=== PATIENT | female | born 1970 | race Caucasian/White ===

== ENCOUNTER → 2017-06-28 10:38 | Outpatient (CLI) | payer OTHER, SELFPAY ==
[2017-06-28 12:43] LABS: Estradiol 52.5 pg/mL; Follicle Stimulating Hormone 9.4 mIU/mL
[2017-07-01 06:24] LABS: HPV APTIMA, High Risk Negative (Negative)
== END ==
PROVIDERS: Family Provider Family Medicine; PCP Family Medicine; Visit Provider Obstetrics & Gynecology
DX: Z01.419 Encounter for gynecological examination (general) (routine) without abnormal findings (principal)
CPT/HCPCS: 36415; 82670; 83001; 88175; G0145

== ENCOUNTER → 2017-07-27 12:24 | Outpatient (CLI) | payer OTHER, SELFPAY ==
--- NOTE | 2017-07-27 12:27 | BI_ITS ---
MAMMOGRAPHY - BILATERAL SCREENING REASON FOR EXAM: Female, 47 years old. Routine annual screening examination. PERTINENT HISTORY: Non-contributory. TECHNIQUE: Digital bilateral breast agapito (3D mammographic acquisition) in the CC and MLO projections. 2-D mediolateral oblique (MLO) and craniocaudad (CC) views of both breasts were obtained. CAD: Full Field Digital Mammography with Computer Added Detection was performed. COMPARISON: Comparison is made with prior outside examination dated April 04, 2016. FINDINGS: Breast Composition: There are scattered areas of fibroglandular density. There are no dominant masses or suspicious calcifications. No other significant abnormalities are identified. There has been no significant change since the prior study. BI/SCREENING MAMM (CAD), BILAT IMPRESSION: Stable bilateral screening mammogram. Yearly follow-up mammogram recommended. (A) ASSESSMENT CATEGORY: BIRADS Category 1: Negative. A letter regarding these results will be sent to the patient by the facility within 30 days. Approximately 10% of breast cancers are not detected by mammography. A normal mammogram should not delay biopsy of a clinically suspicious abnormality. [id number] Electronically Signed: Matty Barton MD at 13:39 EDT Tel [phone], Service support ,
== END ==
PROVIDERS: Family Provider Family Medicine; PCP Family Medicine; Visit Provider Obstetrics & Gynecology
DX: Z12.31 Encounter for screening mammogram for malignant neoplasm of breast (principal)
CPT/HCPCS: 77063; 77067

== ENCOUNTER 2017-10-05 05:29 | Day surgery (SDC) | payer OTHER, SELFPAY ==
[2017-10-05 05:45] VITALS: BP 112/79; PULSE 66; RESP 16; TEMP 36.9; O2SAT 98; BMI 27.1
[2017-10-05 05:50] LABS: Internal QC Validated? YES +Cl - CLEAR BKGD; Pregnancy, Urine Negative Negative
--- NOTE | 2017-10-05 07:34 | PCM.DC.URO ---
Discharge Diet: Light diet - advance as tolerated Discharge Activity: Return to Normal Activity Call your doctor if your incision/area has: Continuous Slow Oozing, Sudden Increased Bleeding, Increased Pain/ Swelling, Increased Redness, Foul Smelling Discharge, Swelling at the incision site Call your doctor if you observe: Inability to urinate Instructions: Stress Urinary Incontinence: Having Midurethral Sling Surgery Allergies/Adverse Reactions: Allergies Sulfa (Sulfonamide Antibiotics) Allergy (Verified 10/05/17 05:43) Hives Medications to take at Discharge Alprazolam [Xanax] 0.5 mg PO DAILY PRN PRN 10/01/17 Alprazolam [Xanax] 1 mg PO QHS 10/01/17 Atenolol [Tenormin (beta Franca)] 25 mg PO QHS 10/01/17 Bupropion HCl [Wellbutrin Xl] 300 mg PO DAILY 10/01/17 Calcium Carbonate [Calcium] 1,000 mg PO QHS 10/01/17 Fluticasone 0.05% [Flonase Nasal [place]] 2 spray NASAL DAILY 10/01/17 L.acidoph,Paracasei, B.lactis [Probiotic] 1 each PO DAILY 10/01/17 Lisinopril [Prinivil] 5 mg PO QHS 10/01/17 Loratadine [Claritin] 10 mg PO DAILY 10/01/17 Multivitamin [Multiple Vitamins] 1 each PO DAILY 10/01/17 Ciprofloxacin [Cipro] 500 mg PO BID #6 tab 10/05/17 Hydrocodone/Acetaminophen [[place] 5-325 Tablet] 1 ea PO Q4H PRN PRN #14 tab 10/05/17 The following prescriptions were given: Hydrocodone/Acetaminophen [[place] 5-325 Tablet] 1 ea PO Q4H PRN PRN #14 tab PRN Reason: Pain Ciprofloxacin [Cipro] 500 mg PO BID #6 tab Primary Care Physician: Airam Concepcion PA-C [Primary Care Provider] - Please Follow Up With: Ivan Roper MD When: in 2 weeks, please call to make an appointment.
[2017-10-05] MEDS: Cefazolin 2 GM in 0.9% Normal Saline 100 ML IV (07:37)
--- NOTE | 2017-10-05 08:38 | OP.PCM_ITS ---
Report of Operation Date of Procedure: 10/05/17 Pre-Operative Diagnosis: Stress incontinence Post-Operative Diagnosis: Same Surgery/Procedure Performed:: Cystoscopy and tension-free vaginal sling Description of Surgical Findings:: 47-year-old female was taken back to the operating room at the smooth induction of general anesthesia she was placed supine on the table she underwent a timeout procedure she was given IV antibiotics, SCDs were on for DVT prophylaxis , she was then placed in dorsal lithotomy position with the legs in stirrups making sure to pressure to secure all insecure all her pressure points, she then underwent a vaginal vault and vaginal prep. Placed the patient in Trendelenburg position with the head down and put a catheter into the bladder and drain the bladder completely 10 cc in the balloon I then marked out the bladder neck with the marker and then marked the mid urethra I then infiltrated the urethra with lidocaine with 1-100,000 epi mixture about 8 cc of lidocaine was injected into the urethra area I did use a forceps to tension the vaginal mucosa and then made a 2 cm incision below the urethra right in the midline once the incision was made then I used long curved kp and dissected a space in the right side from the incision behind the urethra up to the pubic bone into the space of Retzius on the left side the same thing on the right side once the space was developed for the sling material passed through then we went to the top marked the pubic and midline went 2 cm to the left and 2 cm of the right and then made an incision in the skin using a different skin knife, I then used the suprapubic trocar on the left side first and passed the trocar top down behind the pubic bone hugging the pubic bone as I did this and then came to the vaginal incision and passed the trocar top down through the vaginal incision the catheter was then removed I then used cystoscopy performed a cystoscopy was 70? lens distended the bladder really well and there was no perforation or injury of the bladder, I then put a catheter back in drain the bladder and passed the sling up on that side put on a snap on the other end of the sling I then went back to the left side and passed the trocar down the left side top down again hugging the pubic bone as a came down and then through the vaginal incision the trocar was passed I then checked the bladder again used a cystoscopy with 70? lens distended the bladder really well and there was no perforation or violation of the bladder and the urethra was clear. I then grabbed the sling on that side and pulled it up then at this point I flatten the sling made sure that there is no kinking or twisting of the sling and pulled up to the urethra in the midline I then put a snap on the sling, tensioned and then visually to tensioned the sling up to the urethra so that it was right up to the urethra but but not tight on the urethra once the sling was tension to what I thought would be an appropriate amount of tension I then cut the ends of the slings off and then pulled this sheath off the sling to release the sling. The sling was then inspected it was nice and flat below the urethra and then I pulled the vaginal mucosa over the sling made sure the sling was laying nice and flat in the mid ureter which was then cut the ends off the sling on the suprapubic above anteriorly. And tucked the mesh deep into the subcutaneous fat anteriorly I then performed another cystoscopy check in the bladder and the urethra urethra again making sure there is no perforation or violation of the bladder urethra which there are none the bladder was normal she did not have any significant cystocele or prolapsing bladder or her vagina. Then I closed the vaginal incision using interrupted 3-0 Vicryls and then I closed the twos suprapubic incisions with subcuticular Monocryl and Steri- Strips are placed the bladder was drained and emptied completely I did not leave a catheter and patient's anesthetic was reversed and she is taken back to the PACU in good condition and extubated plan will be that the patient urinate if she is able to urinate freely and she can go home without a catheter. Type of Anesthesia:: General Drains: none - Admit VTE Documentation VTE Present on Admission: No VTE Mechan Device Prophylaxis: SCD's VTE Pharm Prophylaxis ordered?: No Reason prophylaxis not ordered:: Treatment Not Indicated
[2017-10-05 08:40] VITALS: BP 112/79; BP 113/75; PULSE 70; RESP 14; TEMP 36.2; O2SAT 96
[2017-10-05 09:00] VITALS: BP 112/76; BP 112/79; PULSE 55; RESP 14; O2SAT 96
[2017-10-05 09:15] VITALS: BP 110/75; BP 112/79; PULSE 50; RESP 16; O2SAT 94
--- NOTE | 2017-10-05 09:28 | PCM.DC.URO ---
Discharge Diet: Light diet - advance as tolerated Discharge Activity: Return to Normal Activity Call your doctor if your incision/area has: Continuous Slow Oozing, Sudden Increased Bleeding, Increased Pain/ Swelling, Increased Redness, Foul Smelling Discharge, Swelling at the incision site Call your doctor if you observe: Inability to urinate Instructions: Stress Urinary Incontinence: Having Midurethral Sling Surgery Allergies/Adverse Reactions: Allergies Sulfa (Sulfonamide Antibiotics) Allergy (Verified 10/05/17 05:43) Hives Medications to take at Discharge Alprazolam [Xanax] 0.5 mg PO DAILY PRN PRN 10/01/17 Alprazolam [Xanax] 1 mg PO QHS 10/01/17 Atenolol [Tenormin (beta Franca)] 25 mg PO QHS 10/01/17 Bupropion HCl [Wellbutrin Xl] 300 mg PO DAILY 10/01/17 Calcium Carbonate [Calcium] 1,000 mg PO QHS 10/01/17 Fluticasone 0.05% [Flonase Nasal [place]] 2 spray NASAL DAILY 10/01/17 L.acidoph,Paracasei, B.lactis [Probiotic] 1 each PO DAILY 10/01/17 Lisinopril [Prinivil] 5 mg PO QHS 10/01/17 Loratadine [Claritin] 10 mg PO DAILY 10/01/17 Multivitamin [Multiple Vitamins] 1 each PO DAILY 10/01/17 Ciprofloxacin [Cipro] 500 mg PO BID #6 tab 10/05/17 Hydrocodone/Acetaminophen [[place] 5-325 Tablet] 1 ea PO Q4H PRN PRN #14 tab 10/05/17 The following prescriptions were given: Hydrocodone/Acetaminophen [[place] 5-325 Tablet] 1 ea PO Q4H PRN PRN #14 tab PRN Reason: Pain Ciprofloxacin [Cipro] 500 mg PO BID #6 tab Primary Care Physician: Airam Concepcion PA-C [Primary Care Provider] -
[2017-10-05 09:30] VITALS: BP 112/79; BP 133/82; PULSE 50; RESP 16; TEMP 36.1; O2SAT 97
--- NOTE | 2017-10-05 09:47 | DCINST_ITS ---
Discharge Diet: Light diet - advance as tolerated Discharge Activity: Return to Normal Activity Call your doctor if your incision/area has: Continuous Slow Oozing, Sudden Increased Bleeding, Increased Pain/ Swelling, Increased Redness, Foul Smelling Discharge, Swelling at the incision site Call your doctor if you observe: Inability to urinate Instructions: Stress Urinary Incontinence: Having Midurethral Sling Surgery Allergies/Adverse Reactions: Allergies Sulfa (Sulfonamide Antibiotics) Allergy (Verified 10/05/17 05:43) Hives Medications to take at Discharge Alprazolam [Xanax] 0.5 mg PO DAILY PRN PRN 10/01/17 Alprazolam [Xanax] 1 mg PO QHS 10/01/17 Atenolol [Tenormin (beta Franca)] 25 mg PO QHS 10/01/17 Bupropion HCl [Wellbutrin Xl] 300 mg PO DAILY 10/01/17 Calcium Carbonate [Calcium] 1,000 mg PO QHS 10/01/17 Fluticasone 0.05% [Flonase Nasal [place]] 2 spray NASAL DAILY 10/01/17 L.acidoph,Paracasei, B.lactis [Probiotic] 1 each PO DAILY 10/01/17 Lisinopril [Prinivil] 5 mg PO QHS 10/01/17 Loratadine [Claritin] 10 mg PO DAILY 10/01/17 Multivitamin [Multiple Vitamins] 1 each PO DAILY 10/01/17 Ciprofloxacin [Cipro] 500 mg PO BID #6 tab 10/05/17 Hydrocodone/Acetaminophen [[place] 5-325 Tablet] 1 ea PO Q4H PRN PRN #14 tab 10/05 The following prescriptions were given: Hydrocodone/Acetaminophen [[place] 5-325 Tablet] 1 ea PO Q4H PRN PRN #14 tab PRN Reason: Pain Ciprofloxacin [Cipro] 500 mg PO BID #6 tab Primary Care Physician: Airam Concepcion PA-C [Primary Care Provider] -
[2017-10-05 13:15] VITALS: BP 112/76; BP 112/79; PULSE 61; RESP 18; TEMP 36.7; O2SAT 97
== END 2017-10-05 13:18 | disposition home or self-care (01) ==
LOC: SDC 05:29 → AC 05:30
PROVIDERS: Family Provider Family Medicine; PCP Family Medicine; Visit Provider Urology
PROC: (CPT 57288; principal; 2017-10-05 07:15)
DX: N39.3 Stress incontinence (female) (male) (principal); R35.0 Frequency of micturition; I10 Essential (primary) hypertension; J30.9 Allergic rhinitis, unspecified; F41.9 Anxiety disorder, unspecified; Z79.899 Other long term (current) drug therapy
CPT/HCPCS: 51992; 81025; J7120; C1771; J2405

== ENCOUNTER → 2017-10-18 16:47 | Outpatient (CLI) | payer OTHER, SELFPAY | PROVIDERS: Family Provider Family Medicine; PCP Family Medicine; Visit Provider Urology | DX: R30.0 Dysuria (principal); R82.99 Other abnormal findings in urine | CPT/HCPCS: 87086; 87088 ==

== ENCOUNTER → 2019-02-27 16:07 | Outpatient (CLI) | payer OTHER, SELFPAY ==
[2019-03-04 20:33] LABS: HPV Reflexed? NOT INDICATED
== END ==
PROVIDERS: Family Provider Family Medicine; PCP Family Medicine; Referring Provider Obstetrics & Gynecology; Visit Provider Obstetrics & Gynecology
DX: Z12.4 Encounter for screening for malignant neoplasm of cervix (principal)
CPT/HCPCS: 88175; G0145

== ENCOUNTER → 2019-03-14 10:56 | Outpatient (CLI) | payer OTHER, SELFPAY ==
--- NOTE | 2019-03-14 11:04 | BI_ITS ---
MAMMOGRAPHY - BILATERAL SCREENING 3-D TOMOSYNTHESIS REASON FOR EXAM: Female, 48 years old. PERTINENT HISTORY: No significant family history. TECHNIQUE: 2-D mammograms and 3-D Tomosynthesis of the breast (s) were performed. CAD was performed. COMPARISON: July 27, 2017 FINDINGS: The breast composition is of fatty texture with minimal fibroglandular tissue Scattered benign calcifications are seen. No dense spiculated masses or suspicious microcalcifications are identified. No architectural distortion is identified. There is no skin thickening or nipple retraction. There has been no significant change since the prior study of July 27, 2017. BI/SCREEN MAMM (CAD) W/CHARISSE BILAT IMPRESSION: No mammographic signs of malignancy. Routine yearly mammograms recommended. ASSESSMENT CATEGORY: BIRADS Category 1: Negative. A letter regarding these results will be sent to the patient by the facility within 30 days. FOLLOW UP RECOMMENDATION: Yearly follow up mammogram recommended. (A) Approximately 10% of breast cancers are not detected by mammography. A normal mammogram should not delay biopsy of a clinically suspicious abnormality. Electronically Signed: Donna Wu, at 15:21 EST Tel , Service support ,
== END ==
PROVIDERS: Family Provider Family Medicine; PCP Family Medicine; Referring Provider Obstetrics & Gynecology; Visit Provider Obstetrics & Gynecology
DX: Z12.31 Encounter for screening mammogram for malignant neoplasm of breast (principal)
CPT/HCPCS: 77063; 77067

== ENCOUNTER → 2020-07-27 09:30 | Outpatient (CLI) | payer OTHER, SELFPAY ==
[2020-07-30 15:53] LABS: HPV Reflexed? NOT INDICATED
== END ==
PROVIDERS: PCP Family Medicine; Visit Provider Obstetrics & Gynecology
DX: Z12.4 Encounter for screening for malignant neoplasm of cervix (principal)
CPT/HCPCS: 88175; G0145

== ENCOUNTER → 2020-10-28 16:22 | Outpatient (CLI) | payer OTHER, SELFPAY ==
--- NOTE | 2020-10-28 16:30 | CT_ITS ---
HISTORY: RETENTION OF URINE, PELVIC/PERINEAL PAIN EXAMINATION: CT Abdomen And Pelvis W/O Contrast Injection TECHNIQUE: Multiple axial images were obtained of the abdomen and pelvis without oral or IV contrast. A radiation dose optimization technique was used for this scan. IV Contrast dosage and agent: None. Oral contrast: None. COMPARISON: None FINDINGS: LOWER CHEST: Lung bases are clear. No cardiomegaly or pericardial effusion. LIVER: Homogeneous. No focal mass. GALLBLADDER AND BILIARY TREE: No calcified gallstones. No gallbladder distension or wall edema. No intra- or extrahepatic biliary ductal dilation. PANCREAS: No focal cystic or solid mass. SPLEEN: Normal size without focal cystic or solid mass. ADRENAL GLANDS: No nodules. KIDNEYS AND URETERS: Normal renal size and position. No hydronephrosis or nephrolithiasis. PERITONEUM: No ascites or free air. BOWEL: No evidence of acute appendicitis. No stomach or bowel distension. No focal inflammatory bowel wall changes. LYMPH NODES: No enlarged mesenteric or retroperitoneal lymph nodes. VESSELS: Aorta is non-dilated. URINARY BLADDER: Unremarkable. REPRODUCTIVE ORGANS: No pelvic masses. ABDOMINAL WALL: No discrete abdominal or pelvic wall hernia. BONES: No acute or aggressive abnormality. CT/Abdomen/Pelvis without Cont IMPRESSION: No acute findings in the abdomen or pelvis. Individualized dose optimization techniques were used for this CT. at 1656 Reported and signed by: Luis Enrique Wilhelm MD Electronically Signed: Luis Enrique Wilhelm MD at 16:55 EDT Tel , Service support ,
== END ==
PROVIDERS: PCP Family Medicine; Referring Provider Nurse Practitioner Adult Health; Visit Provider Nurse Practitioner Adult Health
DX: R33.8 Other retention of urine (principal); R10.2 Pelvic and perineal pain
CPT/HCPCS: 74176

== ENCOUNTER → 2020-11-01 16:07 | Outpatient (CLI) | payer OTHER, SELFPAY ==
[2020-11-01 16:51] LABS: Hemoglobin A1c 5.6 % (3.8-5.6)
[2020-11-01 17:36] LABS: Homocysteine 5.5 umol/L (3.2-10.7)
[2020-11-01 17:58] LABS: Follicle Stimulating Hormone 5.4 mIU/mL; Free T3 2.6 pg/mL (2.18-3.98); T4 Free Direct 0.99 ng/dL (0.76-1.46); Thyroid Stim Hormone (TSH) 1.07 uIU/mL (0.358-3.74)
[2020-11-01 19:03] LABS: Vitamin B12 > 2000 pg/mL (211-911)
[2020-11-07 08:06] LABS: VITAMIN B6 28.8 ug/L (2.0-32.8)
== END ==
PROVIDERS: PCP Family Medicine; Visit Provider Obstetrics & Gynecology
DX: G90.09 Other idiopathic peripheral autonomic neuropathy (principal); M79.2 Neuralgia and neuritis, unspecified; N95.1 Menopausal and female climacteric states; Z13.1 Encounter for screening for diabetes mellitus
CPT/HCPCS: 36415; 82607; 82746; 83001; 83036; 83090; 83921; 84207; 84439; 84443; 84481

== ENCOUNTER → 2021-01-19 08:24 | Outpatient (CLI) | payer OTHER, SELFPAY ==
--- NOTE | 2021-01-19 08:26 | BI_ITS ---
MAMMOGRAPHY - BILATERAL SCREENING 3-D TOMOSYNTHESIS REASON FOR EXAM: Female, 50 years old. SCREENING PERTINENT HISTORY: No significant family history. TECHNIQUE: 2-D mammograms and 3-D Tomosynthesis of the breast (s) were performed. CAD was performed. COMPARISON: 03/14/2019 FINDINGS: The breast composition is composed of scattered fibroglandular density. Scattered benign calcifications are seen. No dense spiculated masses or suspicious microcalcifications are identified. No architectural distortion is identified. There is no skin thickening or retraction. There has been no significant change since the prior study. BI/SCRN MAMM (CAD)W/CHARISSE BILAT IMPRESSION: No mammographic signs of malignancy. Routine yearly mammograms recommended. ASSESSMENT CATEGORY: BIRADS Category 1: Negative. A letter regarding these results will be sent to the patient by the facility within 30 days. FOLLOW UP RECOMMENDATION: Yearly follow up mammogram recommended. (A) Approximately 10% of breast cancers are not detected by mammography. A normal mammogram should not delay biopsy of a clinically suspicious abnormality. Electronically Signed: Danny Solorio MD at 13:06 EDT Tel , Service support ,
== END ==
PROVIDERS: PCP Family Medicine; Visit Provider Obstetrics & Gynecology
DX: Z12.31 Encounter for screening mammogram for malignant neoplasm of breast (principal)
CPT/HCPCS: 77063; 77067

== ENCOUNTER → 2022-06-08 | Outpatient (CLI) | payer OTHER, SELFPAY ==
--- NOTE | 2022-06-08 09:44 | BI_ITS ---
MAMMOGRAPHY - BILATERAL SCREENING REASON FOR EXAM: Female, 52 years old. Routine annual screening examination. PERTINENT HISTORY: Non-contributory. TECHNIQUE: Digital bilateral breast charisse (3D mammographic acquisition) in the CC and MLO projections. 2-D mediolateral oblique (MLO) and craniocaudad (CC) views of both breasts were obtained. CAD: Full Field Digital Mammography with Computer Added Detection was performed. COMPARISON: Comparison is made with prior study 01/19/2021 and 03/14/2019. FINDINGS: Breast Composition: The breasts are almost entirely fatty. There are no dominant masses or suspicious calcifications. No other significant abnormalities are identified. There has been no significant change since the prior study. BI/SCRN MAMM (CAD)W/CHARISSE BILAT IMPRESSION: Stable bilateral screening mammogram. Yearly follow-up mammogram recommended. (A) ASSESSMENT CATEGORY: BIRADS Category 1: Negative. A letter regarding these results will be sent to the patient by the facility within 30 days. Approximately 10% of breast cancers are not detected by mammography. A normal mammogram should not delay biopsy of a clinically suspicious abnormality. [id number] Electronically Signed: Matty Barton MD at 12:40 EST ,
== END | disposition home or self-care (01) ==
LOC: OPBI 09:42
PROVIDERS: PCP Family Medicine; Referring Provider Family Medicine; Visit Provider Family Medicine
DX: Z12.31 Encounter for screening mammogram for malignant neoplasm of breast (principal)
CPT/HCPCS: 77063; 77067

== ENCOUNTER → 2022-10-23 | Outpatient (CLI) | payer OTHER, SELFPAY ==
[2022-10-27 11:09] LABS: Beef <0.10 kU/L (Class 0); Black Walnut <0.10 kU/L (Class 0); Bluegrass, Kentucky 0.16 kU/L (Class 0/I); Brazil Nut <0.10 kU/L (Class 0); Carrot <0.10 kU/L (Class 0); Cashew <0.10 kU/L (Class 0); Cat Hair / Dander,Stand <0.10 kU/L (Class 0); Cedar, Mountain <0.10 kU/L (Class 0); Chicken <0.10 kU/L (Class 0); D farinae Mite 0.65 kU/L (Class II); D pteronyssinus 0.68 kU/L (Class II); Dog Epithelia <0.10 kU/L (Class 0); Egg, White <0.10 kU/L (Class 0); Egg, Whole <0.10 kU/L (Class 0); Egg, Yolk <0.10 kU/L (Class 0); Elm, American White <0.10 kU/L (Class 0); Hazelnut/Filbert <0.10 kU/L (Class 0); Johnson Grass <0.10 kU/L (Class 0); Lamb's Quarter <0.10 kU/L (Class 0); Maple/Box Elder <0.10 kU/L (Class 0); Milk (Cow) <0.10 kU/L (Class 0); Oak, White <0.10 kU/L (Class 0); Oat <0.10 kU/L (Class 0); Peanut <0.10 kU/L (Class 0); Pecan <0.10 kU/L (Class 0); Pigweed, Rough <0.10 kU/L (Class 0); Pine, White <0.10 kU/L (Class 0); Pork <0.10 kU/L (Class 0); Ragweed, Short/Common <0.10 kU/L (Class 0); Russian Thistle <0.10 kU/L (Class 0); Sheep Sorrel <0.10 kU/L (Class 0); Strawberry <0.10 kU/L (Class 0); Tomato <0.10 kU/L (Class 0); Turkey <0.10 kU/L (Class 0); Yeast <0.10 kU/L (Class 0)
[2022-10-28 16:09] LABS: Almond <0.10 kU/L (Class 0); Clam <0.10 kU/L (Class 0); Codfish <0.10 kU/L (Class 0); Corn <0.10 kU/L (Class 0); SCALLOP <0.10 kU/L (Class 0); SESAME SEED <0.10 kU/L (Class 0); Shrimp <0.10 kU/L (Class 0); Soybean <0.10 kU/L (Class 0); Walnut, (Food) <0.10 kU/L (Class 0); Wheat 0.15 kU/L (Class 0/I)
[2022-11-12 18:05] LABS: Potato, White <0.10
== END | disposition home or self-care (01) ==
PROVIDERS: PCP Family Medicine; Referring Provider Otolaryngology Otolaryngology/Facial Plastic Surgery; Visit Provider Otolaryngology Otolaryngology/Facial Plastic Surgery
DX: T78.40XA Allergy, unspecified, initial encounter (principal)
CPT/HCPCS: 36415; 86003

== ENCOUNTER 2022-11-08 07:15 | Day surgery (SDC) | payer OTHER, SELFPAY ==
[2022-11-08] VITALS (7 sets, daily range): BP systolic 92–123; BP diastolic 42–97; PULSE 54–67; RESP 16–18; TEMP 36.1–36.7; O2SAT 94–97; BMI 37.4
--- NOTE | 2022-11-08 | GASB_PTH ---
PATIENT: FINA ENGLISH LOC: EN U#:[id number] AGE/SX: 52/F ROOM: RE11/08/[address]: Dr. 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 pylori and path, B - Gastroesophageal junction biopsy MICROSCOPIC DIAGNOSIS A. Gastric antrum, biopsy: Consistent with eosinophilic gastritis. See comment. B. Gastroesophageal junction mucosa, biopsy: Fragments of gastric mucosa with chronic inflammation. No evidence of goblet cell metaplasia. See comment. AM:torito 11/09/2022 COMMENT A. The results of immunohistochemistry for Helicobacter pylori will be reported separately ([id number]). B. Alcian blue/PAS stain with matched control supports the above diagnosis. MICROSCOPIC DESCRIPTION Slides are reviewed. GROSS DESCRIPTION A - Received in fixative is one container labeled with the patient's name and designated antrum biopsy. The specimen consists of one irregular fragment of light maldonado soft tissue that measures 0.3 x 0.3 x 0.1 cm. The specimen is totally submitted in one cassette. B - Received in fixative is one container labeled with the patient's name and designated GE junction biopsy. The specimen consists of two irregular fragments of light maldonado soft tissue that in aggregate measure 0.5 x 0.3 x 0.1 cm. The specimen is totally submitted in one cassette. / SJ:torito 11/08/2022 TC:3 CPT: 42425 x2, 07572
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
[2022-11-08] MEDS: Lactated Ringers 1,000 ML 15 ML IV (07:35)
--- NOTE | 2022-11-08 08:15 | IMM_PTH ---
PATIENT: FINA ENGLISH LOC: EN U#:[id number] AGE/SX: 52/F ROOM: RE11/08/[address]: Dr. Annika Fulton MD : 1970 BED: DIS: 11/08/2022 SPEC #: [id number] RECD: 11/08/22 13:50 STATUS: ENRIKE REQ #: [id number] ALEXIS: 11/08/22 08:[address]: Annika Fulton DEPT: IMMUNOHISTOCHEMISTRY RECD BY: [place] Luque ENTERED: 11/08/22 13:50 SP TYPE: IMMUNO OTHR DR: Airam Concepcion PA-C Tissues: A - Stomach, NOS Procedures: H Pylori (initial) PHYSICIAN & INSTITUTION [place] [id number] SPECIMEN INFORMATION: Tissue Source: A - Antrum Clinical Info: GERD Specimen Number: [id number] CPT code: 68052 METHODOLOGY: Deparaffinized sections of prefer/formalin-fixed tissue or PAP/DQ stained slides are incubated with monoclonal/polyclonal antibodies/oligonucleotide probes. Localization is made via biotin free immunoperoxidase method. Appropriate controls are performed and reacted as expected. Results on target cell population are indicated in the following table: RESULTS: ANTIBODY / CLONE RESULT Block A H Pylori (polyclonal) negative These tests were developed and their performance characteristics determined by [facility]. They may not have been cleared or approved by the U.S. Food and Drug Administration. The FDA has determined that such clearance or approval is not necessary. The above immunohistochemical/dualISH markers are ordered and reviewed by the Pathologist. INTERPRETATION: A. Antrum, biopsy: Negative for Helicobacter pylori organisms. AM:torito 11/09/2022
--- NOTE | 2022-11-08 08:29 | OP.EGD_ITS ---
Patient Name: Colleen Munguia Procedure Date: 11/08/2022 8:05 AM Date of : 1970 Age: 52 Procedure: Upper GI endoscopy Indications: Heartburn Providers: Annika Fulton MD Referring MD: Airam Concepcion Medicines: Monitored Anesthesia Care Patient Profile: This is a 52 year old female. Complications: No immediate complications. Procedure: Pre-Anesthesia Assessment: - Prior to the procedure, a History and Physical was performed, and patient medications and allergies were reviewed. The patient's tolerance of previous anesthesia was also reviewed. The risks and benefits of the procedure and the sedation options and risks were discussed with the patient. All questions were answered, and informed consent was obtained. Prior Anticoagulants: The patient has taken no previous anticoagulant or antiplatelet agents. ASA Grade Assessment: Per anesthesia. After reviewing the risks and benefits, the patient was deemed in satisfactory condition to undergo the procedure. After obtaining informed consent, the endoscope was passed under direct vision. Throughout the procedure, the patient's blood pressure, pulse, and oxygen saturations were monitored continuously. The Endoscope was introduced through the mouth, and advanced to the second part of duodenum. The upper GI endoscopy was accomplished without difficulty. The patient tolerated the procedure well. Scope In: 8:15:04 AM Scope Out: 8:20:02 AM Total Procedure Duration Time 0 hours 4 minutes 58 seconds Findings: The Z-line was irregular. Biopsies were taken with a cold forceps for histology. Mildly erythematous mucosa without bleeding was found in the gastric antrum. Biopsies were taken with a cold forceps for histology. Biopsies were taken with a cold forceps for Helicobacter pylori cultures. The examined duodenum was normal. The cardia and gastric fundus were normal on retroflexion. Impression: - Z-line irregular. Biopsied. - Erythematous mucosa in the antrum. Biopsied. - Normal examined duodenum. Recommendation: - Await pathology results. - Discharge patient to home. - Resume previous diet. - Continue present medications. Procedure Code(s): --- Professional --- 18830, Esophagogastroduodenoscopy, flexible, transoral; with biopsy, single or multiple Diagnosis Code(s): --- Professional --- K22.8, Other specified diseases of esophagus K31.89, Other diseases of stomach and duodenum R12, Heartburn CPT copyright 2017 [employer]. All rights reserved. The codes documented in this report are preliminary and upon rubber goods repairer review may be revised to meet current compliance requirements. MD Annika Coates MD 11/08/2022 8:28:40 AM This report has been signed electronically. Number of Addenda: 0 Note Initiated On: 11/08/2022 8:05 AM
--- NOTE | 2022-11-08 08:29 | OP.CCLET_ITS ---
11/08/2022 Airam Concepcion Re : Upper GI endoscopy procedure for Colleen Concepcion This procedure was performed on Tuesday, November 08, 2022. My impressions and recommendations are as follows: Impressions : - Z-line irregular. Biopsied. - Erythematous mucosa in the antrum. Biopsied. - Normal examined duodenum. Recommendations : - Await pathology results. - Discharge patient to home. - Resume previous diet. - Continue present medications. My findings are described in the full procedure note, which is enclosed. If I can be of further assistance, please feel free to contact me at Doctor phone number(s): , Work: . Sincerely, MD Annika Coates MD 11/08/2022 8:28:40 AM This report has been signed electronically.
== END 2022-11-08 09:08 | disposition home or self-care (01) ==
LOC: EN 07:15 → AC 07:16
PROVIDERS: PCP Family Medicine; Referring Provider Family Medicine; Visit Provider Surgery
PROC: 0DJ08ZZ Inspection of Upper Intestinal Tract, Via Natural or Artificial Opening Endoscopic (ICD-10-PCS; CPT 43235; principal; 2022-11-08 08:10)
DX: K21.00 Gastro-esophageal reflux disease with esophagitis, without bleeding (principal); K31.89 Other diseases of stomach and duodenum; K52.81 Eosinophilic gastritis or gastroenteritis; E78.5 Hyperlipidemia, unspecified; I10 Essential (primary) hypertension; E66.9 Obesity, unspecified; F41.9 Anxiety disorder, unspecified; F32.A Depression, unspecified; Z79.899 Other long term (current) drug therapy
CPT/HCPCS: 43239; 88305; 88313; 88342; J7120; J2405

== ENCOUNTER → 2023-02-22 | Outpatient (CLI) | payer OTHER, SELFPAY ==
[2023-02-22 14:01] LABS: Erythrocyte Sedimentation Rate 11 mm/hr (0-30)
[2023-02-22 14:02] LABS: Absolute Lymphocyte Count 4.87 X10^3/uL (0.83-4.51); Basophil# 0.03 X10^3/uL; Basophil% 0.2 % (0-1); Eosinophil# 0.16 X10^3/uL; Eosinophils% 1.3 % (0-5); Hematocrit 44.5 % (37-47); Hemoglobin 14.5 g/dL (12.0-15.0); Lymphocyte # 4.87 X10^3/ul (0.83-4.51); Lymphocyte % 38.8 % (19-41); Mean Corp Hgb Conc 32.6 g/dL (32-36); Mean Corpuscular Hgb 29.8 pg (27.0-32.0); Mean Corpuscular Volume 91.6 fL (81-99); Mean Platelet Vol. 9.4 fl (6.2-12.0); NRBC Flagged by Analyzer 0 % (0-5); Neutrophil # 6.95 X10^3/uL (2.7-7.7); Neutrophil % 55.3 % (47-70); Platelet Count 478 K/mm3 (150-450); RBC Distribution Width CV 13.7 % (11.6-14.6); RBC Distribution Width SD 46.3 fl (35.1-43.9); Red Blood Count 4.86 M/mm3 (4.2-5.4); White Blood Count 12.6 K/mm3 (4.4-11.0)
[2023-02-22 14:23] LABS: Vitamin B12 1897 pg/mL (211-911); Vitamin D,25 Hydroxy 44.6 ng/mL
[2023-02-22 14:28] LABS: ALB/GLOB Ratio 0.9 RATIO (0.9-2.4); AST(SGOT) 18 U/L (15-37); Alanine Aminotransfer ALT/SGPT 37 U/L (13-56); Albumin, Serum 3.5 g/dL (3.2-5.0); Alkaline Phosphatase 101 U/L (45-117); Anion Gap 9 (5-15); BUN 24 mg/dL (7-18); BUN/Creat Ratio 27.1 RATIO (10-20); Chloride 104 mmol/L (98-107); Creatinine, Serum 0.88 mg/dL (0.55-1.02); EST Glomerular Filtration Rate 71 mL/min (>60); Est Glom Filt Rate - Afr Amer 85 mL/min (>60); Ferritin 69 ng/mL (8-252); Globulin 4.1 g/dL (2.2-4.2); Glucose 143 mg/dL (74-106); Iron 98 ug/dL (50-170); Iron Binding Capacity,Total 322 ug/dL (250-450); PERCENT IRON SATURATION 30.4 % (15.0-55.0); Potassium 3.3 mmol/L (3.5-5.1); Protein, Total 7.6 g/dL (6.4-8.2); Rheumatoid Factor < 10.0 IU/mL (<15); Sodium Level 139 mmol/L (136-145); Thyroid Stim Hormone (TSH) 2.05 uIU/mL (0.358-3.74)
[2023-02-26 13:07] LABS: ANTINUCLEAR ANTIBODIES DIRECT Negative (Negative)
[2023-02-27 14:09] LABS: C1 EST Inhibitor, Functional >93 (.); Thyroid Peroxidase AB < 9 IU/mL (0-34)
== END | disposition home or self-care (01) ==
PROVIDERS: PCP Family Medicine; Visit Provider Nurse Practitioner
DX: J30.9 Allergic rhinitis, unspecified (principal); D84.9 Immunodeficiency, unspecified; J45.50 Severe persistent asthma, uncomplicated; R06.00 Dyspnea, unspecified; J32.9 Chronic sinusitis, unspecified; T78.3XXD Angioneurotic edema, subsequent encounter; T78.09XD Anaphylactic reaction due to other food products, subsequent encounter; E55.9 Vitamin D deficiency, unspecified; E07.9 Disorder of thyroid, unspecified; D64.9 Anemia, unspecified; Z91.038 Other insect allergy status
CPT/HCPCS: 36415; 80053; 82306; 82607; 82728; 83520; 83540; 83550; 84443; 85025; 85652; 86038; 86160; 86161; 86376; 86431

== ENCOUNTER → 2024-01-08 | Outpatient (CLI) | payer OTHER, SELFPAY ==
--- NOTE | 2024-01-08 08:35 | BI_ITS ---
MAMMOGRAPHY - BILATERAL SCREENING REASON FOR EXAM: Female, 53 years old. Routine annual screening examination. PERTINENT HISTORY: Non-contributory. TECHNIQUE: Digital bilateral breast charisse (3D mammographic acquisition) in the CC and MLO projections. 2-D mediolateral oblique (MLO) and craniocaudad (CC) views of both breasts were obtained. CAD: Full Field Digital Mammography with Computer Added Detection was performed. COMPARISON: Comparison is made with prior study June 08, 2022 and January 19, 2021. FINDINGS: Breast Composition: The breasts are almost entirely fatty. There are no dominant masses or suspicious calcifications. No other significant abnormalities are identified. There has been no significant change since the prior study. BI/SCRN MAMM (CAD)W/CHARISSE BILAT IMPRESSION: Stable bilateral screening mammogram. Yearly follow-up mammogram recommended. (A) ASSESSMENT CATEGORY: BIRADS Category 1: Negative. A letter regarding these results will be sent to the patient by the facility within 30 days. Approximately 10% of breast cancers are not detected by mammography. A normal mammogram should not delay biopsy of a clinically suspicious abnormality. [id number] Electronically Signed: Matty Barton MD at 9:08 EDT ,
== END | disposition home or self-care (01) ==
LOC: OPBI 08:33
PROVIDERS: PCP Family Medicine; Referring Provider Family Medicine; Visit Provider Family Medicine
DX: Z12.31 Encounter for screening mammogram for malignant neoplasm of breast (principal)
CPT/HCPCS: 77063; 77067

== ENCOUNTER → 2025-03-19 | Outpatient (CLI) | payer OTHER, SELFPAY ==
--- NOTE | 2025-03-19 12:16 | BI_ITS ---
EXAM: SCRN MAMM (CAD)W/CHARISSE BILAT DATE: 03/19/2025 CLINICAL HISTORY: F, Age 54 y/o , SCREENING No family history. TECHNIQUE: Procedure Code: BISMWCADBTOM Modality: MG Procedure: SCRN MAMM (CAD)W/CHARISSE BILAT COMPARISON: Prior exam(s) dated January 08, 2024.. FINDINGS: TISSUE DENSITY: The breasts are almost entirely fatty. Bilateral Breast Mammographic Findings: No significant masses, calcifications or other abnormalities are identified. No suspicious masses, areas of developing architectural distortion, or suspicious calcifications. There has been no significant interval change. BI/SCRN MAMM (CAD)W/CHARISSE BILAT IMPRESSION: Stable bilateral screening mammogram. OVERALL FINAL ASSESSMENT BI-RADS 1: NEGATIVE. RECOMMENDATION: Routine annual follow-up in 1 Year Additional Recommendation none A letter with findings and recommendations will be mailed to the patient. Reading Location: [place] [address]
== END | disposition home or self-care (01) ==
LOC: OPBI 12:15
PROVIDERS: PCP Family Medicine; Referring Provider Family Medicine; Visit Provider Family Medicine
DX: Z12.31 Encounter for screening mammogram for malignant neoplasm of breast (principal)
CPT/HCPCS: 77063; 77067